=== PATIENT | male | born 1975 | race Caucasian/White ===

== ENCOUNTER 2016-12-13 12:14 | Inpatient (IN) | payer SELFPAY ==
[2016-12-13] VITALS (12 sets, daily range): BP systolic 150–220; BP diastolic 72–110
[~2016-12-13] VITALS: Ht 188 cm; Wt 131.2 kg
--- NOTE | ~2016-12-13 | PR ---
[place], [place] PROGRESS NOTE NAME: DAVE NÚÑEZ UNIT #: [id number] ROOM: [facility] DOCTOR: DEREK BOSTON MD BIRTHDATE: [birth year] DOS: SUBJECTIVE: The patient was seen in the Cardiology Department just prior to his stress test today. The patient denies any chest pain and states that he is feeling somewhat better. His blood pressure does remain elevated, however. His pulse this morning varied from 100 to 130 with blood pressure varying from 118/49 to 196/102. He denies any chest discomfort, dyspnea or edema. PHYSICAL EXAMINATION: VITAL SIGNS: Today pulse is 121 and regular, blood pressure is 179/100. NECK: Supple. He has no jugular distention. Carotids are full. LUNGS: Respirations are unlabored. His chest is clear to auscultation and percussion. HEART: Has a regular rhythm with an S4 gallop, but no S3 or murmur. ABDOMEN: Benign. EXTREMITIES: Showed no edema. IMPRESSION: 1. Hypertensive urgency. Despite 48 hours of oral and intravenous medications, he remains significantly hypertensive and occasionally tachycardic. 2. Newly documented type 2 diabetes mellitus. PLAN: We will increase his beta suzan and his lisinopril. We will continue to work with the medical secretary receptionist to control his blood pressure. Today, we will proceed with a pharmacologic stress test to make sure that he does not have coronary artery disease as a cause for his admitting chest pains. I thank the hospitalist physicians for asking our advice regarding his care. DEREK BOSTON MD CM:PNTRANS [id number] DEREK BOSTON MD 12/15/16 1038 interface
[~2016-12-13 12:14] MED LIST: MEDROL DOSEPAK4 MG PO
[2016-12-13 12:33] LABS: BASO # 0.1 10*3/uL (0.0-0.1); BASO % 0.7 % (0.0-1.0); EOS # 0.1 10*3/uL (0.0-0.4); EOS % 0.8 % (1.0-4.0); HEMATOCRIT 45.6 % (42.0-52.0); HEMOGLOBIN 15.3 g/dl (14.0-18.0); LYMPH # 2.8 10*3/uL (1.3-4.4); LYMPH % 27.2 % (27.0-41.0); MEAN CELL VOLUME 86.9 fl (80.0-94.0); MEAN CORPUSCULAR HGB 29.1 pg (27.0-31.0); MEAN CORPUSCULAR HGB CONC 33.6 g/dl (33.0-37.0); MONO # 0.8 10*3/uL (0.1-1.0); MONO % 7.5 % (3.0-9.0); NEUT # 6.4 10*3/uL (2.3-7.9); PLATELET COUNT AUTOMATED 243 10*3/uL (130-400); RED BLOOD COUNT 5.25 10*6/uL (4.50-5.90); RED CELL DISTRI WIDTH 13.2 % (0-14.5); WHITE BLOOD COUNT 10.2 10*3/uL (4.8-10.8)
[2016-12-13 12:41] LABS: ACT PARTIAL THROMBO TIME 23.4 SECONDS (20.8-31.5)
[2016-12-13 12:50] LABS: ALBUMIN 3.8 gm/dl (3.1-4.5); ALKALINE PHOSPHATASE 83 U/L (45-117); BUN 14 mg/dl (7-24); CHLORIDE 100 mmol/L (98-107); CREATININE 1.02 mg/dL (0.70-1.30); POTASSIUM 3.3 mmol/L (3.5-5.1); SGOT/AST 20 IU/L (3-35); SGPT/ALT 49 U/L (12-78); SODIUM 135 mmol/L (136-145); TOTAL PROTEIN 8.3 gm/dL (6.4-8.2)
[2016-12-13 12:52] LABS: TROPONIN I < 0.015 ng/ml (<0.045)
--- NOTE | 2016-12-13 14:20 | NUR ---
A 41, admitted to , under the services of VANDA Steinberg DO with a diagnosis of HYPERTENSIVE EMERGENCY, CHEST PAIN. Chief complaint is CHEST PAIN. Patient arrived via bed from ER. Monitor applied. Initial assessment completed. Vital signs taken and recorded. VANDA STEINBERG DO notified of admission to the unit. Orders received. See assessment for past medical history, medications and allergies. Patient and/or family oriented to unit. [facility] visitation policy reviewed. Clothing/patient valuable form completed. MELISSA ESPAÑA
--- NOTE | 2016-12-13 16:05 | NUR ---
'S OFFICE NOTIFIED OF CONSULT
--- NOTE | 2016-12-13 17:07 | NUR ---
NOTIFIED OF ELEVATED BP 220/110 PT ASYMPTOMATIC, NO COMPLAINTS AT THIS TIME
[2016-12-13 17:09] LABS: BILIRUBIN NEGATIVE (NEGATIVE); BLOOD NEGATIVE (NEGATIVE); CLARITY CLEAR (CLEAR); COLOR YELLOW (YELLOW); GLUCOSE 2+ (NEGATIVE); KETONE TRACE (NEGATIVE); LEUKO ESTERASE NEGATIVE (NEGATIVE); NITRITE NEGATIVE (NEGATIVE)
[2016-12-13 17:20] LABS: BACTERIA TRACE; URINE AMPHETAMINES < 1000 (1000ng/ml); URINE BARBITURATES < 200 (200ng/ml); URINE BENZODIAZEPINES < 200 (200ng/ml); URINE CANNABINOIDS (THC) < 50 (50ng/ml); URINE COCAINE < 300 (300ng/ml); URINE METHADONE < 300 (300ng/ml); URINE OPIATES < 300 (300ng/ml)
[2016-12-13 17:21] LABS: URINE PHENCYCLIDINE < 25 (25ng/ml)
--- NOTE | 2016-12-13 17:37 | NUR ---
PT TRANSFERRED TO [facility]U PER REQUEST OF , D/T UNCONTROLLED HYPERTENSION. NURSING JACK WINDER NOTIFIED AND NURSE TO NURSE CALLED.
--- NOTE | 2016-12-13 18:10 | NUR ---
NOTIFIED DR NOLEN OF PT'S CURRENT BP OF 204/88. HE IS GOING TO TALK WITH DR BURNS AND THEN PLACE ORDERS.
--- NOTE | 2016-12-13 18:25 | NUR ---
5MG IV LOPRESSOR GIVEN PER ORDER.
--- NOTE | 2016-12-13 18:35 | NUR ---
RECEIVED PT FROM VIA . BP 204/88 MANUALLY. HR SINUS TACH AT 92. PT DENIES C/O.
--- NOTE | 2016-12-13 19:15 | NUR ---
PT ADMITS TO EXTREME ANXIETY R/T BEING HERE IN THE HOSPITAL STATING "I DO NOT LIKE BEING THE CENTER OF ATTENTION, I JUST LIKE TO BE IN THE BACKGROUND". RN ASSURED PT THAT WE WOULD ATTEND TO HIS NEEDS ONLY OUT OF NECESSITY AND LET HIM REST WITH PRIVACY MUCH POSSIBLE.
--- NOTE | 2016-12-13 19:20 | NUR ---
DR BELLAMY NOTIFIED OF BP OF 220/88, NEW ORDERS RECEIVED.
--- NOTE | 2016-12-13 20:00 | NUR ---
PT EDUCATED ON PROBABLY NEED TO GO HOME ON BP MEDS RN EXPLAINED THE EFFECTS OF HTN ON THE BODY AND THAT HE COULD VISIT [facility] FOR F/U CARE NEEDED. PT SEEMED RECEPTIVE AND STATES THAT HE DOES HAVE INSURANCE.
[2016-12-14] VITALS (10 sets, daily range): BP systolic 148–196; BP diastolic 72–102
--- NOTE | 2016-12-14 | NUR ---
NPO FOR AM STRESS.
--- NOTE | 2016-12-14 04:00 | NUR ---
Patient resting quietly with no c/o discomfort. Respirations easy and regular. Vital signs stable. No overt distress. CASSANDRA ARMSTRONG
[2016-12-14 04:34] LABS: BASO # 0.1 10*3/uL (0.0-0.1); BASO % 0.8 % (0.0-1.0); EOS # 0.2 10*3/uL (0.0-0.4); EOS % 1.8 % (1.0-4.0); HEMOGLOBIN 14.8 g/dl (14.0-18.0); LYMPH # 2.5 10*3/uL (1.3-4.4); LYMPH % 28.7 % (27.0-41.0); MEAN CELL VOLUME 87.9 fl (80.0-94.0); MEAN CORPUSCULAR HGB 28.9 pg (27.0-31.0); MEAN CORPUSCULAR HGB CONC 32.9 g/dl (33.0-37.0); MONO # 0.9 10*3/uL (0.1-1.0); MONO % 10.5 % (3.0-9.0); PLATELET COUNT AUTOMATED 234 10*3/uL (130-400); RED BLOOD COUNT 5.12 10*6/uL (4.50-5.90); RED CELL DISTRI WIDTH 13.6 % (0-14.5); WHITE BLOOD COUNT 8.7 10*3/uL (4.8-10.8)
[2016-12-14 04:48] LABS: ACT PARTIAL THROMBO TIME 24.5 SECONDS (20.8-31.5)
[2016-12-14 05:04] LABS: ALBUMIN 3.3 gm/dl (3.1-4.5); ALKALINE PHOSPHATASE 68 U/L (45-117); BUN 11 mg/dl (7-24); CHLORIDE 101 mmol/L (98-107); CREATININE 0.86 mg/dL (0.70-1.30); FREE T4 1.24 ng/dl (0.76-1.46); MAGNESIUM 2.3 mg/dL (1.5-2.1); PHOSPHOROUS 2.8 mg/dL (2.5-4.9); SGOT/AST 17 IU/L (3-35); SGPT/ALT 42 U/L (12-78); SODIUM 138 mmol/L (136-145); TOTAL PROTEIN 7.3 gm/dL (6.4-8.2)
[2016-12-14 07:18] LABS: VITAMIN D, 25-HYDROXY 14.2 ng/mL (30-100)
--- NOTE | 2016-12-14 08:36 | NUR ---
DR RODRIGUEZ IN TO SEE PT. UPDATED PT ON LAB RESULTS AND PLAN OF CARE.
--- NOTE | 2016-12-14 11:06 | NUR ---
DR POE IN TO SEE PT. NEW ORDERS RECEIVED. 10MG IV HYDRALAZINE AND 1NG IV ATIVAN GIVEN TO PT FOR BP 226/120 MANUAL.
--- NOTE | 2016-12-14 11:14 | NUR ---
DR BOSTON UPDATED ON PT'S BP AND PT GIVEN 10MG IV HYDRALZINE AND 1MG IV ATIVAN PER DR POE'S ORDERS. ORDERS RECEIVED TO HOLD STRESS TEST UNTIL AM, 5M IV LOPRESSOR NOW AND HE ALSO INCREASED PT'S ZESTRIL AND LOPRESSOR DOSES.
--- NOTE | 2016-12-14 12:45 | NUR ---
DR LOUIS IN TO SEE PT. NEW ORDERS RECEIVED.
--- NOTE | 2016-12-14 14:37 | NUR ---
DR BOSTON IN TO SEE PT.
--- NOTE | 2016-12-14 17:13 | NUR ---
DR RODRIGUEZ UPDATED THAT PT HAS BEEN REFUSING TO EAT AND HIS 4PM BLOOD GLUCOSE IS 132. PT ORDERED LEVEMIR [address] RODRIGUEZ ORDERED TO HOLD LEVEMIR IF PT DOES NOT EAT.
--- NOTE | 2016-12-14 18:10 | NUR ---
PT STATED "I'M NOT EATING TODAY". LEVEMIR HELD PER ORDER. IV ATIVAN GIVEN TO PT FOR HIS INCREASED AGITATION AND ANXIETY. CURRENT BP 194/98.
--- NOTE | 2016-12-14 20:00 | NUR ---
Patient resting quietly with no c/o discomfort. Respirations easy and regular. Vital signs stable. No overt distress. CASSANDRA ARMSTRONG
[2016-12-15] VITALS (8 sets, daily range): BP systolic 118–196; BP diastolic 49–115
--- NOTE | 2016-12-15 00:56 | NUR ---
Patient resting quietly with no c/o discomfort. Respirations easy and regular. Vital signs stable. No overt distress. CASSANDRA ARMSTRONG
[2016-12-15 05:08] LABS: BUN 17 mg/dl (7-24); CHLORIDE 95 mmol/L (98-107); CREATININE 1.26 mg/dL (0.70-1.30); MAGNESIUM 2.3 mg/dL (1.5-2.1); PHOSPHOROUS 3.6 mg/dL (2.5-4.9); SODIUM 132 mmol/L (136-145)
--- NOTE | 2016-12-15 05:30 | NUR ---
PT IS ONCE AGAIN HYPERTENSIVE. HE IS STILL ADMITTING TO EXTREME ANXIETY R/T THE HEALTHCARE ENVIRONMENT AND PEOPLE IN GENERAL. HE STATES THAT WHEN HE IS AWAKE AND AWARE OF HIS BP BEING TAKEN, HE FIXATATES ON IT, IS "UNABLE TO THINK ABOUT ANYTHING ELSE" AND GETS INCREASED ANXIETY. RN HAS NOTICE A DIRECT CORRELATION BETWEEN BP VALUES AT TIMES OF REST VS AWAKENED STATES, NOTING THAT CONSISTENTLY THERE IS A SIGNIFCANT INCREASE IN BP, TO AN UNACCEPTABLE LEVEL, WHEN PT IS AWAKE AND AWARE. OTHERWISE, HE IS ASYMPTOMATIC DURING HYPERTENSIVE STATES. CASSANDRA ARMSTRONG RN
--- NOTE | 2016-12-15 06:00 | NUR ---
PT REFUSING BATH FOR 2ND DAY BECAUSE HE "JUST DOESN'T FEEL LIKE IT". RN ASKED HIM IF HE WAS UPSET AND WHY, IF IT WAS BEING SICK OR KNOWING HES SICK, i.e. HTN, PT ADMITTED TO THE LATTER. RN AGAIN EDUCATED PT ON HTN MEDS AND MANAGEMENT. PT NERVOUSLY GIGGLED.
--- NOTE | 2016-12-15 06:15 | NUR ---
BP TAKEN FROM OUTSIDE OF THE ROOM WHILE PT IS LESS AWARE OF STAFF, BP NOW 161/87.
--- NOTE | 2016-12-15 06:42 | NUR ---
MEDICATED WITH IV ATIVAN ORDERED FOR HTN/AXNIETY. ONLY 1MG GIVEN NOT TO SEDATED PT PRIOR TO STRESS TEST.
--- NOTE | 2016-12-15 10:00 | NUR ---
INFORMED CONSENT OBTAINED FOR LEXISCAN NUCLEAR STRESS TEST WITH DR. BOSTON. RESTING EKG SINUS TACHYCARDIA WITH RESTING HR OF 121 WITH BP OF 170/98. LUNGS CLEAR WITH SPO2 OF 99% ON ROOM AIR. PT COMPLETED A 1:00 LEXISCAN RECEIVING LEXISCAN 0.4 MG IV OVER 10 SECONDS. HAD NO CHEST PAIN OR ANY EKG CHANGES. DID C/O "WEIRD" FEELING THAT SUBSIDED IN RECOVERY. HAD A PEAK HR OF 149 WITH BP OF 192/80. LAST RECOVERY HR OF 131 WITH BP OF 174/96. AWAITING SCANNING IN STABLE CONDITION.
--- NOTE | 2016-12-15 16:14 | NUR ---
Nutritional Support Services Note: Discussing with pt 1800cal diabetic diet. Diet copy given to pt. Discussed risks of high BP and high BS. Pt lives alone, does his own meals. Encouraged healthy eating and proper portion sizes. All questions were answerered. Pt states he will do the best he can with diet. Encouraged follow up as needed. Alea Smith
--- NOTE | 2016-12-15 18:05 | NUR ---
PATIENT TRANSFERED FROM ICU. SITTING UP IN BED PLAYING WITH PHONE. ALERT AND ORIENTED X 3. RESPIRATIONS EASY ON RA. LUNGS CLEAR BUT DIMINISHED. DENIES COUGH. BS ARE NORMOACTIVE. DENIES N/V/D. NO EDEMA. DENIES PAIN.
[2016-12-16] VITALS: BP 123/81
--- NOTE | 2016-12-16 01:43 | NUR ---
24 HR chart check completed.
[2016-12-16 08:00] VITALS: BP 160/84
[2016-12-16 08:11] LABS: BASO # 0.1 10*3/uL (0.0-0.1); BASO % 0.8 % (0.0-1.0); EOS # 0.1 10*3/uL (0.0-0.4); EOS % 0.9 % (1.0-4.0); HEMATOCRIT 51.9 % (42.0-52.0); HEMOGLOBIN 17.1 g/dl (14.0-18.0); LYMPH # 2.8 10*3/uL (1.3-4.4); LYMPH % 24.2 % (27.0-41.0); MEAN CELL VOLUME 87.8 fl (80.0-94.0); MEAN CORPUSCULAR HGB 28.9 pg (27.0-31.0); MEAN CORPUSCULAR HGB CONC 32.9 g/dl (33.0-37.0); MEAN PLATELET VOLUME 10.2 fl (9.6-12.3); MONO # 1.3 10*3/uL (0.1-1.0); MONO % 10.9 % (3.0-9.0); NEUT # 7.3 10*3/uL (2.3-7.9); NEUT % 62.7 % (47.0-73.0); PLATELET COUNT AUTOMATED 302 10*3/uL (130-400); RED BLOOD COUNT 5.91 10*6/uL (4.50-5.90); RED CELL DISTRI WIDTH 13.3 % (0-14.5); WHITE BLOOD COUNT 11.6 10*3/uL (4.8-10.8)
[2016-12-16 08:56] LABS: CHLORIDE 95 mmol/L (98-107); POTASSIUM 3.9 mmol/L (3.5-5.1); SODIUM 133 mmol/L (136-145)
[2016-12-16 08:58] LABS: CREATININE 1.15 mg/dL (0.70-1.30)
[2016-12-16 09:00] LABS: BUN 27 mg/dl (7-24)
--- NOTE | 2016-12-16 09:00 | NUR ---
Organic Chemistry Teacher in to talk to patient. Patient states lives at home with mom. There are few steps in the home. Physician: none Pharmacy: none Home health services: none Patient's level of ADLs: INDEPENDENT Patient has working utilities: all working DME: none Follow-up physician's appointment after d/c: will be made by hospitalist nurse director upon discarge Does patient want to access PORTAL?: no Discharge plan discussed with patient, patient states he lives at home with his mom, states he is independent in adls and ambulation, patient states he will be going home and denies any home needs. ERICK CARO
--- NOTE | 2016-12-16 09:55 | NUR ---
PT UP AMBULATING IN ROOM, PT DENIES ANY COMPLAINTS. SCHEDULED MEDICATIONS GIVEN AT THIS TIME.
--- NOTE | 2016-12-16 11:31 | NUR ---
DIABETIC EDUCATION PROVIDED TO PT AT THIS TIME. HAD PT PERFORM HIS OWN FINGER STICK AND ADMINISTER HIS OWN INSULIN COVERAGE.
[2016-12-16 12:00] VITALS: BP 149/97
[2016-12-16] MEDS ORDERED: BD ULTRA-FINE1 EAC3 MC (14:33)
[2016-12-16] MEDS ORDERED: VITAMIN D-32000 UNI1 PO (14:33)
[2016-12-16] MEDS ORDERED: TEST STRIPS1 EACH MC (14:33)
[2016-12-16] MEDS ORDERED: METOPROLOL TAR100 M1 PO (14:33)
[2016-12-16] MEDS ORDERED: NOVOLOG FL100 UNIT/1 SQ (14:33)
[2016-12-16] MEDS ORDERED: GLUCOPHAGE500 MG PO (14:33)
[2016-12-16] MEDS ORDERED: LEVEMIR FL100 UNIT/1 SC (14:33)
[2016-12-16] MEDS ORDERED: ASPIRIN CHEWABL81 M1 PO (14:33)
[2016-12-16] MEDS ORDERED: HYDR25T PO (14:33)
[2016-12-16] MEDS ORDERED: ACCU-CHEK FAST1 EACH MC (14:33)
[2016-12-16] MEDS ORDERED: LISINOPRIL20 MG PO (14:33)
--- NOTE | 2016-12-16 15:09 | NUR ---
Discharge instructions reviewed with patient/family. Patient receptive and verbalizes understanding. Follow-up care arranged. Written instructions given to patient/family. IV site and surveillance system monitor removed. Diabetes education discussed at length with patient. Pt instructed to go to our pharmacy to have all new meds filled. CM YUEN
== END 2016-12-16 15:09 | disposition home or self-care (01) | DRG 305 ==
LOC: ED 12:14 → EDHOLD 13:04 → 5E 13:04 → ICCU 13:04 → 5E 13:44 → ICCU 17:39 → 5E 12-15 17:41
PROVIDERS: Internal Medicine; Internal Medicine Cardiovascular Disease; Student in an Organized Health Care Education/Training Program; ADMIT Internal Medicine
PROC: 4A02XM4 Measurement of Cardiac Total Activity, External Approach (ICD-10-PCS; principal; 2016-12-15)
PROC: 3E073KZ Introduction of Other Diagnostic Substance into Coronary Artery, Percutaneous Approach (ICD-10-PCS; principal; 2016-12-15)
DX: I16.1 Hypertensive emergency (principal); E11.65 Type 2 diabetes mellitus with hyperglycemia; K76.0 Fatty (change of) liver, not elsewhere classified; E87.1 Hypo-osmolality and hyponatremia; E87.6 Hypokalemia; E83.51 Hypocalcemia; F10.10 Alcohol abuse, uncomplicated; F17.200 Nicotine dependence, unspecified, uncomplicated; F41.9 Anxiety disorder, unspecified; E66.01 Morbid (severe) obesity due to excess calories; R91.8 Other nonspecific abnormal finding of lung field; Z79.4 Long term (current) use of insulin; Z79.82 Long term (current) use of aspirin; Z79.899 Other long term (current) drug therapy; Z68.33 Body mass index [BMI] 33.0-33.9, adult; Z82.49 Family history of ischemic heart disease and other diseases of the circulatory system

== ENCOUNTER → 2016-12-28 | Outpatient (CLI) | payer SELFPAY ==
[~2016-12-28] MED LIST changes: +ACCU-CHEK FAST1 EACH MC; +ASPIRIN CHEWABL81 M1 PO; +BD ULTRA-FINE1 EAC3 MC; +GLUCOPHAGE500 MG PO; +HYDR25T PO; +LEVEMIR FL100 UNIT/1 SC; +LISINOPRIL20 MG PO; +METOPROLOL TAR100 M1 PO; +NOVOLOG FL100 UNIT/1 SQ; +TEST STRIPS1 EACH MC; +VITAMIN D-32000 UNI1 PO
== END | disposition home or self-care (01) ==
LOC: RESCLI 04:10
DX: I10 Essential (primary) hypertension (principal); E11.65 Type 2 diabetes mellitus with hyperglycemia; E55.9 Vitamin D deficiency, unspecified; F10.10 Alcohol abuse, uncomplicated; E66.01 Morbid (severe) obesity due to excess calories; F41.9 Anxiety disorder, unspecified; Z72.0 Tobacco use; Z71.6 Tobacco abuse counseling

== ENCOUNTER → 2017-04-15 | Outpatient (CLI) | payer SELFPAY ==
[2017-04-15 14:06] LABS: BASO # 0.1 10*3/uL (0.0-0.1); EOS # 0.2 10*3/uL (0.0-0.4); EOS % 1.9 % (1.0-4.0); HEMATOCRIT 40.6 % (42.0-52.0); HEMOGLOBIN 13.1 g/dl (14.0-18.0); LYMPH # 2.9 10*3/uL (1.3-4.4); MEAN CELL VOLUME 89.6 fl (80.0-94.0); MEAN CORPUSCULAR HGB 28.9 pg (27.0-31.0); MEAN CORPUSCULAR HGB CONC 32.3 g/dl (33.0-37.0); MEAN PLATELET VOLUME 9.6 fl (9.6-12.3); MONO # 0.6 10*3/uL (0.1-1.0); MONO % 6.5 % (3.0-9.0); NEUT # 5.3 10*3/uL (2.3-7.9); NEUT % 58.4 % (47.0-73.0); PLATELET COUNT AUTOMATED 280 10*3/uL (130-400); RED BLOOD COUNT 4.53 10*6/uL (4.50-5.90); RED CELL DISTRI WIDTH 13.2 % (0-14.5)
[2017-04-15 14:27] LABS: CHLORIDE 98 mmol/L (98-107); POTASSIUM 3.9 mmol/L (3.5-5.1); SODIUM 136 mmol/L (136-145)
[2017-04-15 14:43] LABS: ALBUMIN 4.2 gm/dl (3.1-4.5); ALKALINE PHOSPHATASE 75 U/L (45-117); BUN 16 mg/dl (7-24); SGOT/AST 22 IU/L (3-35); SGPT/ALT 30 U/L (12-78); TOTAL PROTEIN 7.7 gm/dL (6.4-8.2)
== END | disposition home or self-care (01) ==
LOC: LAB 13:44
PROVIDERS: Internal Medicine
DX: Z00.01 Encounter for general adult medical examination with abnormal findings (principal); R79.89 Other specified abnormal findings of blood chemistry

== ENCOUNTER → 2017-04-19 | Outpatient (CLI) | payer SELFPAY | END | disposition home or self-care (01) | LOC: RESCLI 02:21 | DX: E11.65 Type 2 diabetes mellitus with hyperglycemia (principal); I10 Essential (primary) hypertension; E55.9 Vitamin D deficiency, unspecified; F10.10 Alcohol abuse, uncomplicated; E66.01 Morbid (severe) obesity due to excess calories; F41.9 Anxiety disorder, unspecified; Z72.0 Tobacco use; Z71.6 Tobacco abuse counseling ==

== ENCOUNTER → 2017-08-15 | Outpatient (CLI) | payer SELFPAY | END | disposition home or self-care (01) | LOC: RESCLI 02:41 | DX: I10 Essential (primary) hypertension (principal); E11.65 Type 2 diabetes mellitus with hyperglycemia; E55.9 Vitamin D deficiency, unspecified; E66.01 Morbid (severe) obesity due to excess calories; F41.9 Anxiety disorder, unspecified; Z71.6 Tobacco abuse counseling; Z87.891 Personal history of nicotine dependence ==

== ENCOUNTER → 2017-11-30 | Outpatient (CLI) | payer SELFPAY | END | disposition home or self-care (01) | LOC: RESCLI 03:32 | DX: I10 Essential (primary) hypertension (principal); E11.65 Type 2 diabetes mellitus with hyperglycemia; E55.9 Vitamin D deficiency, unspecified; E66.01 Morbid (severe) obesity due to excess calories; F41.9 Anxiety disorder, unspecified; Z71.6 Tobacco abuse counseling; Z79.84 Long term (current) use of oral hypoglycemic drugs; Z79.899 Other long term (current) drug therapy; Z79.82 Long term (current) use of aspirin; Z87.891 Personal history of nicotine dependence ==

== ENCOUNTER 2018-09-20 16:12 | Emergency (ER) | payer OTHER ==
[~2018-09-20] VITALS: Ht 187.9 cm; Wt 127.0 kg
--- NOTE | ~2018-09-20 | EKG ---
[place], [place] ELECTROCARDIOGRAM REPORT NAME: DAVE NÚÑEZ UNIT #: [id number] ROOM: DOCTOR: EMILIE DRAFT REPORT BIRTHDATE: [birth year] [facility] Test Date: 2018-09-20 Test Time: 16:38:02 Pat Name: DAVE NÚEÑZ Department: Room: Gender: Associate Director Finance: : 1975 Requested By: RUSS BALLARD Order Number: [id number] Reading MD: Joshua Calvo MD Measurements Intervals Arjay Rate: 85 P: 36 FL: 157 QRS: -8 QRSD: 98 T: 21 QT: 380 QTc: 452 Interpretive Statements Sinus rhythm Abnormal R-wave progression, late transition Baseline wander in lead(s) V3,V4 Electronically Signed On 09-24-2018 8:38:58 PDT by Joshua Calvo MD CM:EKGRPT:ELECTROCARDIOGRAM REPORT [id number] RUSS OLIVER DRAFT REPORT RUSS BALLARD DO
[2018-09-20 16:54] LABS: BASO # 0.1 10*3/uL (0.0-0.1); BASO % 0.8 % (0.0-1.0); EOS # 0.2 10*3/uL (0.0-0.4); EOS % 2.1 % (1.0-4.0); HEMOGLOBIN 12.5 g/dl (14.0-18.0); LYMPH # 2.6 10*3/uL (1.3-4.4); LYMPH % 30.4 % (27.0-41.0); MEAN CELL VOLUME 86.9 fl (80.0-94.0); MEAN CORPUSCULAR HGB 27.8 pg (27.0-31.0); MEAN CORPUSCULAR HGB CONC 32.1 g/dl (33.0-37.0); MEAN PLATELET VOLUME 9.9 fl (9.6-12.3); MONO # 0.8 10*3/uL (0.1-1.0); MONO % 9.6 % (3.0-9.0); NEUT # 4.9 10*3/uL (2.3-7.9); NEUT % 56.6 % (47.0-73.0); PLATELET COUNT AUTOMATED 263 10*3/uL (130-400); RED BLOOD COUNT 4.49 10*6/uL (4.50-5.90); RED CELL DISTRI WIDTH 13.8 % (0-14.5); WHITE BLOOD COUNT 8.7 10*3/uL (4.8-10.8)
[2018-09-20 17:07] LABS: ACT PARTIAL THROMBO TIME 26.5 SECONDS (20.0-32.1)
[2018-09-20 17:15] LABS: ALBUMIN 3.8 gm/dl (3.1-4.5); ALKALINE PHOSPHATASE 60 U/L (45-117); BUN 20 mg/dl (7-24); CHLORIDE 100 mmol/L (98-107); CREATININE 1.12 mg/dL (0.70-1.30); LIPASE 100 U/L (73-393); POTASSIUM 3.3 mmol/L (3.5-5.1); SGOT/AST 17 IU/L (3-35); SGPT/ALT 34 U/L (12-78); SODIUM 133 mmol/L (136-145); TOTAL PROTEIN 7.8 gm/dL (6.4-8.2)
[2018-09-20 17:25] LABS: TROPONIN I < 0.015 ng/ml (<0.045)
== END 2018-09-20 18:38 | disposition home or self-care (01) ==
LOC: ED 16:12
PROVIDERS: Emergency Medicine
DX: I10 Essential (primary) hypertension (principal); E11.9 Type 2 diabetes mellitus without complications; E66.01 Morbid (severe) obesity due to excess calories; F17.200 Nicotine dependence, unspecified, uncomplicated; Z79.82 Long term (current) use of aspirin; Z79.899 Other long term (current) drug therapy

== ENCOUNTER → 2018-11-13 | Outpatient (CLI) | payer OTHER | END | disposition home or self-care (01) | LOC: RESCLI 02:02 | DX: I10 Essential (primary) hypertension (principal); E55.9 Vitamin D deficiency, unspecified; E11.65 Type 2 diabetes mellitus with hyperglycemia; Z79.899 Other long term (current) drug therapy ==

== ENCOUNTER → 2018-12-17 | Outpatient (CLI) | payer OTHER ==
[2018-12-17 12:14] LABS: BASO # 0.1 10*3/uL (0.0-0.1); BASO % 0.8 % (0.0-1.0); EOS # 0.2 10*3/uL (0.0-0.4); EOS % 2.2 % (1.0-4.0); HEMATOCRIT 44.2 % (42.0-52.0); HEMOGLOBIN 14.2 g/dl (14.0-18.0); LYMPH # 2.9 10*3/uL (1.3-4.4); LYMPH % 29.5 % (27.0-41.0); MEAN CELL VOLUME 87.7 fl (80.0-94.0); MEAN CORPUSCULAR HGB 28.2 pg (27.0-31.0); MEAN CORPUSCULAR HGB CONC 32.1 g/dl (33.0-37.0); MEAN PLATELET VOLUME 9.9 fl (9.6-12.3); MONO # 0.9 10*3/uL (0.1-1.0); NEUT # 5.7 10*3/uL (2.3-7.9); NEUT % 58.1 % (47.0-73.0); PLATELET COUNT AUTOMATED 316 10*3/uL (130-400); RED BLOOD COUNT 5.04 10*6/uL (4.50-5.90); RED CELL DISTRI WIDTH 13.7 % (0-14.5); WHITE BLOOD COUNT 9.8 10*3/uL (4.8-10.8)
[2018-12-17 12:37] LABS: ALBUMIN 3.8 gm/dl (3.1-4.5); ALKALINE PHOSPHATASE 70 U/L (45-117); BUN 16 mg/dl (7-24); CHLORIDE 98 mmol/L (98-107); CHOLESTEROL 192 mg/dL (<200); HDL CHOLESTEROL 34 mg/dl (40-60); LDL CHOLESTEROL 113 mg/dL (9-159); POTASSIUM 3.7 mmol/L (3.5-5.1); SGOT/AST 12 IU/L (3-35); SGPT/ALT 36 U/L (12-78); SODIUM 133 mmol/L (136-145); TOTAL PROTEIN 8.1 gm/dL (6.4-8.2); TRIGLYCERIDES 227 mg/dl (<150); VLDL CHOLESTEROL 45 mg/dL (6-40)
== END | disposition home or self-care (01) ==
LOC: LAB 11:37
PROVIDERS: Internal Medicine
DX: I10 Essential (primary) hypertension (principal)

== ENCOUNTER → 2019-01-02 | Outpatient (CLI) | payer OTHER | END | disposition home or self-care (01) | LOC: RESCLI 00:20 | DX: I10 Essential (primary) hypertension (principal); E55.9 Vitamin D deficiency, unspecified; E11.65 Type 2 diabetes mellitus with hyperglycemia; Z79.899 Other long term (current) drug therapy ==

== ENCOUNTER → 2020-04-14 | Outpatient (CLI) | payer OTHER | END | disposition home or self-care (01) | LOC: RESCLI 00:26 | PROVIDERS: ATTEND Student in an Organized Health Care Education/Training Program | DX: I10 Essential (primary) hypertension (principal); E11.65 Type 2 diabetes mellitus with hyperglycemia; E55.9 Vitamin D deficiency, unspecified; F10.10 Alcohol abuse, uncomplicated; E66.01 Morbid (severe) obesity due to excess calories; F41.9 Anxiety disorder, unspecified; Z79.82 Long term (current) use of aspirin; Z79.84 Long term (current) use of oral hypoglycemic drugs; Z79.899 Other long term (current) drug therapy; Z87.891 Personal history of nicotine dependence ==

== ENCOUNTER → 2020-04-27 | Outpatient (CLI) | payer OTHER | END | disposition home or self-care (01) | LOC: RESCLI 01:44 | PROVIDERS: ATTEND Internal Medicine Nephrology | DX: I10 Essential (primary) hypertension (principal); E11.65 Type 2 diabetes mellitus with hyperglycemia; E55.9 Vitamin D deficiency, unspecified; F10.10 Alcohol abuse, uncomplicated; Z79.84 Long term (current) use of oral hypoglycemic drugs; Z79.899 Other long term (current) drug therapy; Z79.82 Long term (current) use of aspirin ==

== ENCOUNTER 2020-05-11 19:04 | Emergency (ER) | payer OTHER ==
[~2020-05-11] VITALS: Ht 187.9 cm; Wt 128.8 kg
[2020-05-11 19:33] LABS: BASO # 0.1 10*3/uL (0.0-0.1); BASO % 0.8 % (0.0-1.0); EOS # 0.2 10*3/uL (0.0-0.4); EOS % 1.8 % (1.0-4.0); LYMPH # 3.7 10*3/uL (1.3-4.4); LYMPH % 34.4 % (27.0-41.0); MEAN CORPUSCULAR HGB 27.1 pg (27.0-31.0); MEAN CORPUSCULAR HGB CONC 31.9 g/dl (33.0-37.0); MEAN PLATELET VOLUME 9.7 fl (9.6-12.3); MONO % 8.9 % (3.0-9.0); NEUT # 5.8 10*3/uL (2.3-7.9); NEUT % 53.7 % (47.0-73.0); PLATELET COUNT AUTOMATED 325 10*3/uL (130-400); RED BLOOD COUNT 5.06 10*6/uL (4.50-5.90); RED CELL DISTRI WIDTH 13.8 % (0-14.5); WHITE BLOOD COUNT 10.8 10*3/uL (4.8-10.8)
[2020-05-11 19:50] LABS: ALBUMIN 3.8 gm/dl (3.1-4.5); ALKALINE PHOSPHATASE 89 U/L (45-117); BUN 24 mg/dl (7-24); CHLORIDE 98 mmol/L (98-107); CREATININE 1.41 mg/dL (0.70-1.30); POTASSIUM 3.2 mmol/L (3.5-5.1); SGOT/AST 12 IU/L (3-35); SGPT/ALT 34 U/L (12-78); SODIUM 134 mmol/L (136-145); TOTAL PROTEIN 7.9 gm/dL (6.4-8.2)
[2020-05-11 19:53] LABS: TROPONIN I < 0.015 ng/ml (<0.045)
== END 2020-05-11 20:30 | disposition home or self-care (01) ==
LOC: ED 19:04
PROVIDERS: Internal Medicine
DX: I47.1 Supraventricular tachycardia (principal); G25.71 Drug induced akathisia; E87.8 Other disorders of electrolyte and fluid balance, not elsewhere classified; I10 Essential (primary) hypertension; Z79.899 Other long term (current) drug therapy; Z79.4 Long term (current) use of insulin; Z87.891 Personal history of nicotine dependence